=== PATIENT | male | born 1975 | race African-American/Black ===

== ENCOUNTER 2017-02-03 13:00 | Inpatient (IN) | payer OTHER ==
[~2017-02-03] VITALS: Ht 172.7 cm; Wt 108.4 kg
[2017-02-03 14:47] LABS: HEMATOCRIT 41.9 % (38.0-50.0); MCH 30.6 PG (29.0-34.0); MCHC 33.4 G/DL (30.0-36.0); MCV 91.5 FL (86-99); MEAN PLAT.VOLUME 10.5 uM^3 (9.0-12.4); PLATELET COUNT 202 K/uL (156-360); RBC DIS.WIDTH-CV 12.9 % (11.8-14.6); RBC DIS.WIDTH-SD 43.2 % (39-53); RED BLOOD COUNT 4.58 M/uL (4.00-5.50)
[2017-02-03 15:04] LABS: CHLORIDE 105 mEq/L (99-109); SODIUM 139 mEq/L (136-147)
[2017-02-03 15:06] LABS: GLUCOSE 94 mg/dL (70-99)
[2017-02-03 15:07] LABS: ANION GAP 11 MEQ/L (2-14)
[2017-02-03 15:09] LABS: SERUM ETHYL ALCOHOL < 10 mg/dL
[2017-02-03 15:10] LABS: GFR ESTIMATE (CALCULATED) > 59 mL/min/; UREA NITROGEN (BUN) 8 mg/dL (9-23)
[2017-02-03 15:34] LABS: AMPHETAMINE NEGATIVE (500 ng/mL); BARBITURATES NEGATIVE (200 ng/mL); BENZODIAZEPINES NEGATIVE (150 ng/mL); COCAINE NEGATIVE (150 ng/mL); METHADONE NEGATIVE (200 ng/mL); METHAMPHETAMINE NEGATIVE (500 ng/mL); OPIATES (MORPHINE) NEGATIVE (100 ng/mL); OXYCODONE NEGATIVE (100 ng/mL); PHENCYCLIDINE NEGATIVE (25 ng/mL); PROPOXYPHENE NEGATIVE (300 ng/mL); THC CANNABINOIDS NEGATIVE (50 ng/mL); TRICYCLIC ANTIDEPRESSANTS NEGATIVE (300 ng/mL)
[2017-02-03 15:35] LABS: INTERNAL CONTROLS VALID? YES
[2017-02-03] MEDS ORDERED: VENTOLIN HFA18 GM IH (17:18)
[2017-02-03 19:02] VITALS: BP 140/83
[2017-02-04 07:58] VITALS: BP 131/81
[2017-02-04 15:25] VITALS: BP 132/86
[2017-02-05 08:03] VITALS: BP 124/75
[2017-02-05 16:00] VITALS: BP 149/76
[2017-02-05 19:47] VITALS: BP 127/84
[2017-02-06 07:58] VITALS: BP 132/83
[2017-02-06] MEDS ORDERED: RISPERIDONE1 MG PO (09:11)
== END 2017-02-06 12:35 | disposition home or self-care (01) | DRG 885 ==
LOC: EME → EDBD 13:00 → EME 13:00 → EDOF 16:45 → 1WEST 16:45
PROVIDERS: Emergency Medicine
DX: F29 Unspecified psychosis not due to a substance or known physiological condition (principal); Z76.5 Malingerer [conscious simulation]; F17.210 Nicotine dependence, cigarettes, uncomplicated
CPT/HCPCS: 80048; 85027; 90839; 97150 GO; 97166 GO; 99281; 99285; G0480

== ENCOUNTER 2017-02-19 10:19 | Inpatient (IN) | payer OTHER ==
[~2017-02-19] VITALS: Ht 172.7 cm; Wt 110.6 kg
[~2017-02-19 10:19] MED LIST: RISPERIDONE1 MG PO; VENTOLIN HFA18 GM IH
[2017-02-19 11:39] LABS: ADD MIUA? NO; BILIRUBIN NEGATIVE; BLOOD NEGATIVE; COLOR YELLOW ((YELLOW)); GLUCOSE (STRIP) NEGATIVE; KETONES NEGATIVE; LEUKOCYTES NEGATIVE; NITRITE NEGATIVE; PROTEIN (STRIP) NEGATIVE; UROBILINOGEN 0.2 MG/DL (0.2-1.0)
[2017-02-19 11:47] LABS: AMPHETAMINE NEGATIVE (500 ng/mL); BARBITURATES NEGATIVE (200 ng/mL); BENZODIAZEPINES NEGATIVE (150 ng/mL); COCAINE NEGATIVE (150 ng/mL); INTERNAL CONTROLS VALID? YES; METHADONE NEGATIVE (200 ng/mL); METHAMPHETAMINE NEGATIVE (500 ng/mL); OPIATES (MORPHINE) NEGATIVE (100 ng/mL); OXYCODONE NEGATIVE (100 ng/mL); PHENCYCLIDINE NEGATIVE (25 ng/mL); PROPOXYPHENE NEGATIVE (300 ng/mL); THC CANNABINOIDS NEGATIVE (50 ng/mL); TRICYCLIC ANTIDEPRESSANTS NEGATIVE (300 ng/mL)
[2017-02-19 12:23] LABS: EOSINOPHIL (%) 1.1 % (0-5); EOSINOPHIL COUNT 0.1 K/uL (0-0.3); HEMATOCRIT 40.1 % (38.0-50.0); IMMATURE GRANULOCYTE (%) 0.3 % (0.0-0.7); LYMPHOCYTE COUNT 1.7 K/uL (1.0-2.8); MCH 30.3 PG (29.0-34.0); MCHC 33.9 G/DL (30.0-36.0); MCV 89.3 FL (86-99); MEAN PLAT.VOLUME 10.2 uM^3 (9.0-12.4); MONOCYTE (%) 9.2 % (3-12); MONOCYTE COUNT 0.6 K/uL (0-0.8); NEUTROPHIL (%) 62.6 % (45-76); PLATELET COUNT 206 K/uL (156-360); RBC DIS.WIDTH-CV 12.8 % (11.8-14.6); RBC DIS.WIDTH-SD 42.4 % (39-53); RED BLOOD COUNT 4.49 M/uL (4.00-5.50); WHITE BLOOD COUNT 6.4 K/uL (4.1-10.2)
[2017-02-19 12:45] LABS: CHLORIDE 105 mEq/L (99-109); POTASSIUM 4.1 mEq/L (3.7-5.4); SODIUM 137 mEq/L (136-147)
[2017-02-19 12:46] LABS: GLUCOSE 104 mg/dL (70-99)
[2017-02-19 12:48] LABS: ANION GAP 12 MEQ/L (2-14)
[2017-02-19 12:50] LABS: GFR ESTIMATE (CALCULATED) > 59 mL/min/; SERUM ETHYL ALCOHOL < 10 mg/dL
[2017-02-19 12:51] LABS: UREA NITROGEN (BUN) 11 mg/dL (9-23)
[2017-02-19 15:47] VITALS: BP 131/86
[2017-02-20 07:59] VITALS: BP 136/85
[2017-02-20 15:16] VITALS: BP 122/78
[2017-02-21 07:39] VITALS: BP 123/74
[2017-02-21 15:12] VITALS: BP 142/91
[2017-02-22 09:07] VITALS: BP 151/85
[2017-02-22 15:23] VITALS: BP 127/74
[2017-02-23 07:50] VITALS: BP 126/87
[2017-02-23 15:27] VITALS: BP 123/77
[2017-02-24 08:13] VITALS: BP 123/81
[2017-02-24 16:28] VITALS: BP 122/74
[2017-02-25 07:41] VITALS: BP 124/77
[2017-02-25 15:37] VITALS: BP 122/61
[2017-02-26 08:15] VITALS: BP 117/68
[2017-02-26] MEDS ORDERED: RISPERIDONE3 MG PO (09:34)
[2017-02-26] MEDS ORDERED: BENZTROPINE MESY1 MG PO (09:34)
[2017-02-26] MEDS ORDERED: FAMOTIDINE20 MG PO (09:34)
== END 2017-02-26 11:05 | disposition home or self-care (01) | DRG 885 ==
LOC: EME → EDBD 10:19 → 1WEST 13:32 → EDOF 13:32 → 1WEST 13:32
PROVIDERS: Emergency Medicine
DX: F29 Unspecified psychosis not due to a substance or known physiological condition (principal); R45.850 Homicidal ideations; F43.11 Post-traumatic stress disorder, acute; G89.29 Other chronic pain
CPT/HCPCS: 80048; 81003; 85025; 90837; 94640; 94640 76; 97150 GO; 97165 GO; 99202; 99281; 99285; G0480; Q0177

== ENCOUNTER 2017-03-11 05:21 | Emergency (ER) | payer OTHER ==
[~2017-03-11] VITALS: Ht 172.7 cm; Wt 127.3 kg
[~2017-03-11 05:21] MED LIST changes: +BENZTROPINE MESY1 MG PO; +FAMOTIDINE20 MG PO; +RISPERIDONE3 MG PO
[2017-03-11 06:13] LABS: HEMATOCRIT 40.9 % (38.0-50.0); MCH 30.4 PG (29.0-34.0); MCHC 33.3 G/DL (30.0-36.0); MCV 91.3 FL (86-99); MEAN PLAT.VOLUME 9.8 uM^3 (9.0-12.4); PLATELET COUNT 217 K/uL (156-360); RBC DIS.WIDTH-SD 43.2 % (39-53); RED BLOOD COUNT 4.48 M/uL (4.00-5.50); WHITE BLOOD COUNT 6.3 K/uL (4.1-10.2)
[2017-03-11 06:13] LABS: ADD MIUA? NO; BILIRUBIN NEGATIVE; BLOOD NEGATIVE; COLOR YELLOW ((YELLOW)); GLUCOSE (STRIP) NEGATIVE; KETONES NEGATIVE; LEUKOCYTES NEGATIVE; NITRITE NEGATIVE; PROTEIN (STRIP) NEGATIVE; SPECIFIC GRAVITY 1.019 (1.000-1.030); UCUL ADDED? NO; UROBILINOGEN 0.2 MG/DL (0.2-1.0)
[2017-03-11 06:21] LABS: AMPHETAMINE NEGATIVE (500 ng/mL); BARBITURATES NEGATIVE (200 ng/mL); BENZODIAZEPINES NEGATIVE (150 ng/mL); COCAINE NEGATIVE (150 ng/mL); INTERNAL CONTROLS VALID? YES; METHADONE NEGATIVE (200 ng/mL); METHAMPHETAMINE NEGATIVE (500 ng/mL); OPIATES (MORPHINE) NEGATIVE (100 ng/mL); OXYCODONE NEGATIVE (100 ng/mL); PHENCYCLIDINE NEGATIVE (25 ng/mL); PROPOXYPHENE NEGATIVE (300 ng/mL); THC CANNABINOIDS NEGATIVE (50 ng/mL); TRICYCLIC ANTIDEPRESSANTS NEGATIVE (300 ng/mL)
[2017-03-11 06:24] LABS: CHLORIDE 108 mEq/L (99-109); POTASSIUM 4.1 mEq/L (3.7-5.4); SODIUM 139 mEq/L (136-147)
[2017-03-11 06:26] LABS: GLUCOSE 95 mg/dL (70-99)
[2017-03-11 06:28] LABS: ANION GAP 9 MEQ/L (2-14)
[2017-03-11 06:29] LABS: SERUM ETHYL ALCOHOL < 10 mg/dL
[2017-03-11 06:30] LABS: GFR ESTIMATE (CALCULATED) > 59 mL/min/
[2017-03-11 06:31] LABS: UREA NITROGEN (BUN) 17 mg/dL (9-23)
[2017-03-11 13:06] VITALS: BP 139/101
== END 2017-03-11 13:10 | disposition home or self-care (01) ==
LOC: EME → EDBD 05:21 → EME 05:21
PROVIDERS: Emergency Medicine
DX: R45.851 Suicidal ideations (principal); F32.9 Major depressive disorder, single episode, unspecified; I10 Essential (primary) hypertension; F17.200 Nicotine dependence, unspecified, uncomplicated
CPT/HCPCS: 80048; 81003; 85027; 90837; 99281; 99285; G0480